=== PATIENT | female | born 1945 | race Caucasian/White ===

== ENCOUNTER → 2018-03-29 | Outpatient (CLI) | payer MEDICARE ==
[~2018-03-29] MED LIST: ALBU8.5H5 INH; ATOR20TA9 PO; CALC-60 PO; CETI1TAB PO; CHOL2000 PO; CLIN150C14 PO; CRAN300T PO; CYCL-259 PO; CYCL1DRO EACHEYE; ESTR1TAB15 PO; FISH1CAP PO; GEMF600T4 PO; GLUC1CAP48 PO; LISI1TAB3 PO; MECL25TA4 PO; MULT-26 PO; OMEP-110 PO; OXYB5TAB7 PO; RIVA10TA PO; SIMV40TA PO; TRAM50TA2 PO; [UNRECOGNIZED DRUG - CODE] EACHEYE; [UNRECOGNIZED DRUG - CODE] EACHEYE
== END | disposition home or self-care (01) ==
LOC: CFH 12:28
PROVIDERS: ATTEND Family Medicine
DX: Z12.31 Encounter for screening mammogram for malignant neoplasm of breast (principal); Z80.3 Family history of malignant neoplasm of breast
CPT/HCPCS: 77063; 77067